=== PATIENT | male | born 1995 | race Caucasian/White ===

== ENCOUNTER 2020-10-01 14:03 | Outpatient (CLI) | payer OTHER ==
[2020-10-01 18:19] LABS: RAPID STREP SCREEN Negative (Negative)
== END 2020-10-01 23:59 ==
LOC: LAB.N 14:03
PROVIDERS: ATTEND Nurse Practitioner
DX: R07.0 Pain in throat (principal); Z20.822 Contact with and (suspected) exposure to COVID-19
CPT/HCPCS: 87070; 87430